=== PATIENT | male | born 1945 | race Caucasian/White ===

== ENCOUNTER → 2016-03-23 | Outpatient (CLI) | payer MEDICARE ==
[2016-03-23 10:26] LABS: ALT 41 U/L (21-72); AST 25 U/L (17-59); Alkaline Phosphatase 71 U/L (38-126); Anion Gap 9 mmol/L; Blood Urea Nitrogen 16 mg/dL (9-20); Calcium 9.3 mg/dL (8.4-10.2); Carbon Dioxide 28 mmol/L (22-30); Chloride 106 mmol/L (98-107); Cholesterol 133 mg/dL (<200); Glucose 108 mg/dL (74-99); HDL Cholesterol 50 mg/dL (40-60); Non-African American GFR(MDRD) >60 (>60 ml/min/1.73 sqM); Potassium 4.7 mmol/L (3.5-5.1); Sodium 143 mmol/L (137-145); Total Bilirubin 0.7 mg/dL (0.2-1.3); Total Protein 7.2 g/dL (6.3-8.2); Triglycerides 50 mg/dL (<150)
[2016-03-23 10:56] LABS: Hemoglobin A1C 6.1 % (4.2-6.1)
== END | disposition home or self-care (01) ==
LOC: LABWHC1 09:29
PROVIDERS: ATTEND Internal Medicine Interventional Cardiology
DX: E78.5 Hyperlipidemia, unspecified (principal); E11.9 Type 2 diabetes mellitus without complications
CPT/HCPCS: 36415; 80053; 80061; 83036

== ENCOUNTER 2018-07-10 20:27 | Inpatient (IN) | payer MEDICARE ==
[2018-07-10] MEDS ORDERED: AMPICILLIN-SULBACTAM 3 GM in SODIUM CHLORIDE 0.9% 100 ML IVPB STA (21:06)
--- NOTE | 2018-07-10 21:08 | ED ---
General Adult HPI - General Chief complaint: Skin/Abscess/Foreign Body Stated complaint: Cat Bite Time Seen by Provider: 07/10/18 20:34 Source: patient, family, RN notes reviewed Mode of arrival: ambulatory Limitations: no limitations - History of Present Illness Initial comments: 73-year-old male presents to the emergency department for a chief complaint of Bite of the right hand. Patient states this happened about 12 hours ago. States it was his daughter's cat and the cat is up-to-date on immunizations including rabies. Patient denies any difficulty moving his hand or thumb but does state it feels tight in the dorsal aspect of the right first metacarpal. Denies fevers or chills. However patient states that a few hours ago he noticed the area was very red and he had a streak up his arm to his elbow. He states he went to urgent care who recommended he come to the emergency department for IV antibiotics.Patient has no other complaints at this time including shortness of breath, chest pain, abdominal pain, nausea or vomiting, headache, or visual changes. - Related Data Home Medications Medication Instructions Recorded Confirmed Aspirin [[place] Aspirin EC] 81 mg PO DAILY 07/10/18 07/10/18 Cholecalciferol (Vitamin D3) 2,000 unit PO DAILY 07/10/18 07/10/18 [Vitamin D3] Multivit-Min/Folic/Vit K/Lycop 1 tab PO DAILY 07/10/18 07/10/18 [Men's Multivitamin Tablet] [place]-3 Fatty Acids/Fish Oil [Fish 1 cap PO DAILY 07/10/18 07/10/18 Oil 1,000 mg Softgel] Vitamin E 1,000 unit PO DAILY 07/10/18 07/10/18 Allergies Allergy/AdvReac Type Severity Reaction Status Date / Time alcohol Allergy Nausea & Verified 07/10/18 20:40 Vomiting egg yolk Allergy Nausea & Verified 07/10/18 20:40 Vomiting gluten Allergy Nausea & Verified 07/10/18 20:40 Vomiting mold Allergy Nausea & Verified 07/10/18 20:40 Vomiting Review of Systems ROS Statement: Those systems with pertinent positive or pertinent negative responses have been documented in the HPI. ROS Other: All systems not noted in ROS Statement are negative. Past Medical History Past Medical History: No Reported History History of Any Multi-Drug Resistant Organisms: None Reported Past Surgical History: No Surgical Hx Reported Past Psychological History: No Psychological Hx Reported Smoking Status: Never smoker Past Alcohol Use History: Occasional Past Drug Use History: None Reported General Exam Limitations: no limitations General appearance: alert, in no apparent distress Head exam: Present: atraumatic, normocephalic, normal inspection Eye exam: Present: normal appearance, PERRL, EOMI. Absent: scleral icterus, conjunctival injection, periorbital swelling ENT exam: Present: normal exam, mucous membranes moist Neck exam: Present: normal inspection, full ROM. Absent: tenderness, meningismus, lymphadenopathy Respiratory exam: Present: normal lung sounds bilaterally. Absent: respiratory distress, wheezes, rales, rhonchi, stridor Cardiovascular Exam: Present: regular rate, normal rhythm, normal heart sounds. Absent: systolic murmur, diastolic murmur, rubs, gallop, clicks Extremities exam: Present: full ROM (Full range of motion of all digits in the right hand including the first digit), normal capillary refill (Capillary refill less than 2 seconds, radial pulse 2+ in the right upper extremity), other (Sensation intact in the right upper extremity. There is an area of cellulitis noted to the dorsal right first metacarpal. There is streaking lymphangitis up to the right elbow on the medial aspect of the forearm.) Course Vital Signs 07/10/18 20:27 Temperature 98.6 F Pulse Rate 67 Respiratory 18 Rate Blood Pressure 186/112 O2 Sat by Pulse 97 Oximetry Medical Decision Making - Medical Decision Making 73-year-old male presents to the emergency determine for a chief complaint of right hand redness after A. Patient states he has streaking up his right arm as well. It occurred about 12 hours ago. Was immunized for rabies. On exam patient has full range motion of the right arm but does have some erythema noted over the right dorsal first metacarpal with lymphangitis extending up to the right elbow. Patient was started on IV Unasyn. CBC CMP are unremarkable. Plasma lactic acid 0.9. Patient is not tachycardic. Patient hypertensive, likely due to pain. X-ray of the right hand shows osteoarthritis without f racture. No definite sign of osteomyelitis. No foreign bodies. Given the lymphangitic streaking with history of cat Bite patient will be admitted for IV antibiotics and further management. - Lab Data Result diagrams: 07/10/18 21:09 07/10/18 21:09 Lab Results 07/10/18 07/10/18 07/10/18 Range/Units 21:09 21:09 21:09 WBC 6.5 (3.8-10.6) k/uL RBC 5.18 (4.30-5.90) m/uL Hgb 14.4 (13.0-17.5) gm/dL Hct 44.9 (39.0-53.0) % MCV 86.6 (80.0-100.0) fL MCH 27.8 (25.0-35.0) pg MCHC 32.2 (31.0-37.0) g/dL RDW 13.5 (11.5-15.5) % Plt Count 250 (150-450) k/uL Neutrophils % 67 % Lymphocytes % 24 % Monocytes % 5 % Eosinophils % 3 % Basophils % 1 % Neutrophils # 4.3 (1.3-7.7) k/uL Lymphocytes # 1.5 (1.0-4.8) k/uL Monocytes # 0.3 (0-1.0) k/uL Eosinophils # 0.2 (0-0.7) k/uL Basophils # 0.1 (0-0.2) k/uL PT (9.0-12.0) sec INR (<1.2) APTT (22.0-30.0) sec Sodium 139 (137-145) mmol/L Potassium 4.1 (3.5-5.1) mmol/L Chloride 106 (98-107) mmol/L Carbon Dioxide 27 (22-30) mmol/L Anion Gap 6 mmol/L BUN 23 H (9-20) mg/dL Creatinine 0.91 (0.66-1.25) mg/dL Est GFR (CKD-EPI)AfAm >90 (>60 ml/min/1.73 sqM) Est GFR (CKD-EPI)NonAf 85 (>60 ml/min/1.73 sqM) Glucose 100 H (74-99) mg/dL Plasma Lactic Acid [place] 0.9 (0.7-2.0) mmol/L Calcium 9.6 (8.4-10.2) mg/dL Total Bilirubin 0.3 (0.2-1.3) mg/dL AST 30 (17-59) U/L ALT 27 (21-72) U/L Alkaline Phosphatase 77 (38-126) U/L Total Protein 7.1 (6.3-8.2) g/dL Albumin 4.4 (3.5-5.0) g/dL 07/10/18 Range/Units 21:09 WBC (3.8-10.6) k/uL RBC (4.30-5.90) m/uL Hgb (13.0-17.5) gm/dL Hct (39.0-53.0) % MCV (80.0-100.0) fL MCH (25.0-35.0) pg MCHC (31.0-37.0) g/dL RDW (11.5-15.5) % Plt Count (150-450) k/uL Neutrophils % % Lymphocytes % % Monocytes % % Eosinophils % % Basophils % % Neutrophils # (1.3-7.7) k/uL Lymphocytes # (1.0-4.8) k/uL Monocytes # (0-1.0) k/uL Eosinophils # (0-0.7) k/uL Basophils # (0-0.2) k/uL PT 9.6 (9.0-12.0) sec INR 0.9 (<1.2) APTT 25.5 (22.0-30.0) sec Sodium (137-145) mmol/L Potassium (3.5-5.1) mmol/L Chloride (98-107) mmol/L Carbon Dioxide (22-30) mmol/L Anion Gap mmol/L BUN (9-20) mg/dL Creatinine (0.66-1.25) mg/dL Est GFR (CKD-EPI)AfAm (>60 ml/min/1.73 sqM) Est GFR (CKD-EPI)NonAf (>60 ml/min/1.73 sqM) Glucose (74-99) mg/dL Plasma Lactic Acid [place] (0.7-2.0) mmol/L Calcium (8.4-10.2) mg/dL Total Bilirubin (0.2-1.3) mg/dL AST (17-59) U/L ALT (21-72) U/L Alkaline Phosphatase (38-126) U/L Total Protein (6.3-8.2) g/dL Albumin (3.5-5.0) g/dL Disposition Clinical Impression: Cat bite, Lymphangitis Disposition: ADMITTED IP TO THIS HOSP Condition: Fair Is patient prescribed a controlled substance at d/c from ED?: No Referrals: None,Stated [Primary Care Provider] - 1-2 days Time of Disposition: 21:08
[2018-07-10 21:25] LABS: Basophils # (A) 0.1 k/uL (0-0.2); Basophils % (A) 1 %; Eosinophils # (A) 0.2 k/uL (0-0.7); Eosinophils % (A) 3 %; HCT 44.9 % (39.0-53.0); HGB 14.4 gm/dL (13.0-17.5); Lymphocytes # (A) 1.5 k/uL (1.0-4.8); Lymphocytes % (A) 24 %; MCH 27.8 pg (25.0-35.0); MCHC 32.2 g/dL (31.0-37.0); MCV 86.6 fL (80.0-100.0); Mean Platelet Volume 6.5; Monocytes # (A) 0.3 k/uL (0-1.0); Monocytes % (A) 5 %; Neutrophils # (A) 4.3 k/uL (1.3-7.7); Neutrophils % (A) 67 %; Platelet Count 250 k/uL (150-450); RBC 5.18 m/uL (4.30-5.90); RDW 13.5 % (11.5-15.5); WBC 6.5 k/uL (3.8-10.6)
[2018-07-10 21:31] LABS: ALT 27 U/L (21-72); AST 30 U/L (17-59); Albumin 4.4 g/dL (3.5-5.0); Alkaline Phosphatase 77 U/L (38-126); Anion Gap 6 mmol/L; Blood Urea Nitrogen 23 mg/dL (9-20); Calcium 9.6 mg/dL (8.4-10.2); Carbon Dioxide 27 mmol/L (22-30); Chloride 106 mmol/L (98-107); Glucose 100 mg/dL (74-99); Potassium 4.1 mmol/L (3.5-5.1); Sodium 139 mmol/L (137-145); Total Bilirubin 0.3 mg/dL (0.2-1.3); Total Protein 7.1 g/dL (6.3-8.2)
[2018-07-10 21:32] LABS: INR 0.9 (<1.2); Partial Thromboplastin Time 25.5 sec (22.0-30.0); Prothrombin Time 9.6 sec (9.0-12.0)
--- NOTE | 2018-07-10 21:45 | XR ---
EXAMINATION TYPE: XR hand complete RT DATE OF EXAM: 07/10/2018 COMPARISON: NONE HISTORY: Pain TECHNIQUE: 2 views FINDINGS: Metacarpal 2 intact. There is narrowing and spurring at the first carpometacarpal joint. I see no fracture nor dislocation. There are cystic change at the base of the first metacarpal. There i s mild spurring at the DIP joints. There is narrowing with sclerosis at the scaphoid trapezium joint. IMPRESSION: Osteoarthritis. No fracture. No definite sign of osteomyelitis.
[2018-07-10] MEDS ORDERED: NALOXONE 0.4 MG/ML 1 ML VIAL IV PRN (21:56)
[2018-07-10] MEDS ORDERED: ONDANSETRON 4 MG/2 ML VIAL IVP PRN (21:56)
[2018-07-10] MEDS ORDERED: traMADol 50 MG TAB PO PRN (21:56)
[2018-07-10] MEDS ORDERED: ACETAMINOPHEN TAB 325 MG TAB PO PRN (21:56)
[2018-07-10] MEDS ORDERED: SODIUM CHLORIDE 0.9% 1,000 ML IV SCH (22:00)
[2018-07-10] MEDS: SODIUM CHLORIDE 0.9% 500 ML 500 ML IV SCH ×2 (22:03→23:37)
[2018-07-10] MEDS ORDERED: cloNIDine HCL 0.2 MG TAB PO PRN (22:39)
--- NOTE | 2018-07-10 23:32 | P.HPIM ---
History of Present Illness H&P Date: 07/10/18 Chief Complaint: Cat-bite 73-year-old male with no significant past medical history Patient presented to the hospital after sustaining a cat Bite, but his daughter's pet who is up-to-date on all the vaccines. Patient felt that the bite was deep to the bone. He monitored bed for few hours and grew worried when he noticed increased redness pain and then streak of red line from the site of bite to the elbow for which she went to urgent care who recommended to go to the ER. He denies any fevers or chills denies any chest pain or trouble breathing denies any similar events in the past. Patient doesn't have any ALLERGIES to penicillin. In the ED he was started on Unasyn, patient has no fever no elevated white count Past Medical History Past Medical History: No Reported History History of Any Multi-Drug Resistant Organisms: None Reported Past Surgical History: No Surgical Hx Reported Past Psychological History: No Psychological Hx Reported Smoking Status: Never smoker Past Alcohol Use History: Occasional Past Drug Use History: None Reported Medications and Allergies Home Medications Medication Instructions Recorded Confirmed Type Aspirin [[place] Aspirin EC] 81 mg PO DAILY 07/10/18 07/10/18 History Cholecalciferol (Vitamin D3) 2,000 unit PO DAILY 07/10/18 07/10/18 History [Vitamin D3] Multivit-Min/Folic/Vit K/Lycop 1 tab PO DAILY 07/10/18 07/10/18 History [Men's Multivitamin Tablet] [place]-3 Fatty Acids/Fish Oil [Fish 1 cap PO DAILY 07/10/18 07/10/18 History Oil 1,000 mg Softgel] Vitamin E 1,000 unit PO DAILY 07/10/18 07/10/18 History Allergies Allergy/AdvReac Type Severity Reaction Status Date / Time alcohol Allergy Nausea & Verified 07/10/18 20:40 Vomiting egg yolk Allergy Nausea & Verified 07/10/18 20:40 Vomiting gluten Allergy Nausea & Verified 07/10/18 20:40 Vomiting mold Allergy Nausea & Verified 07/10/18 20:40 Vomiting Physical Exam Vitals: Vital Signs Temp Pulse Resp BP Pulse Ox 07/10/18 20:27 98.6 F 67 18 186/112 97 Intake and Output 07/10/18 07/10/18 07/10/18 06:59 14:59 22:59 Other: Weight 79.379 kg Results CBC & Chem 7: 07/10/18 21:09 07/10/18 21:09 Labs: Abnormal Lab Results - Last 24 Hours (Table) 07/10/18 Range/Units 21:09 BUN 23 H (9-20) mg/dL Glucose 100 H (74-99) mg/dL Assessment and Plan Assessment: 73-year-old male with no significant past medical history presented to the hospital due to cat-bite admitted under observation with anticipated length of stay less than 48 hours patient will be monitored for 24 hours and if no fevers and erythema is improving patient will be discharged on Augmentin to finish ten-day course Plan: Cellulitis at site of cat bite Hypertensive urgency Patient was started on Unasyn Follow-up cultures Clonidine when necessary for systolic above 180 or diastolic above 110 DVT prophylaxis patient is ambulatory low risk Patient has matters to 10 in the morning and he would like to be evaluated early in the morning to see if he is appropriate for discharge Surrogate decision-maker: Patient CODE STATUS: Full code Discussed with: Patient, ER, RN Anticipated discharge: Less than [address]: Home A total of 60 minutes was spent on the care of this complex patient more than 50% of the time was spent in counseling and care coordination.
[2018-07-11] MEDS ORDERED: AMPICILLIN-SULBACTAM 3 GM in SODIUM CHLORIDE 0.9% 100 ML IVPB SCH (04:00)
[2018-07-11 05:40] VITALS: BP 96/50; PULSE 55; RESP 16; TEMP 97.6
--- NOTE | 2018-07-11 08:19 | P.DS ---
Providers Date of admission: 07/10/18 20:56 Expected date of discharge: 07/11/18 Attending physician: Ryan Lance MD Primary care physician: Stated None Hospital Course: Discharge Diagnosis: Cat bite Left hand cellulitis Elevated blood pressure without diagnosis of HTN Hospital Course: Patient is a 73-year-old male with no known past medical history who presented to the hospital after sustaining a cat bite. He initially went to the [facility] and [facility] and they were concerned about the area of redness may therefore sent to the hospital. In the ER he underwent an extensive evaluation. He did not have any fevers, white blood cell count was normal. He was admitted for observation secondary to concern for impending sepsis. He was started on Un asyn. He was admitted overnight. Area of redness decreased up his arm. He was able to better move his hand and swelling decreased. He was determined stable for outpatient course of oral antibiotics. Secondary to sepsis around the bite he should receive a total of 10 days of antibiotics. He will complete this course with Augmentin 875 mg twice daily for 9 additional days. He can use Tylenol and Motrin [id number] as needed for pain. He was given explicit instructions as listed below 1 to return to the ER. I've asked him to follow up with a provider in 3 days to ensure that the cellulitis is getting better. He'll follow with Dr. Moore out of the [facility] and [facility]. Patient seen and examined at bedside. Pain improved, swelling improved. Feeling well. Vital signs reviewed and stable. General: non toxic, no distress, appears at stated age Derm: left thumb with redness, no warmth, no swelling, full range of motion intact, warm, dry Head: atraumatic, normocephalic, symmetric Eyes: EOMI, no lid lag, anicteric sclera Mouth: no lip lesion, mucus membranes moist Cardiovascular: S1S2 reg, no murmur, positive posterior tibial pulse bilateral, Lungs: CTA bilateral, no rhonchi, no rales , no accessory muscle use Abdominal: soft, nontender to palpation, no guarding, no appreciable organomegaly Ext: no gross muscle atrophy, no edema, no contractures Neuro: CN II-XI grossly intact, no focal neuro deficits Psych: Alert, oriented, appropriate affect A total of 20 minutes of time were spent preparing this complex discharge summary . Patient Condition at Discharge: Fair Plan - Discharge Summary Discharge Rx Participant: No New Discharge Prescriptions: New Amoxic-Pot Clav 875-125Mg [Augmentin 875-125] 1 tab PO Q12HR #18 tablet Continue Vitamin E 1,000 unit PO DAILY [place]-3 Fatty Acids/Fish Oil [Fish Oil 1,000 mg Softgel] 1 cap PO DAILY Multivit-Min/Folic/Vit K/Lycop [Men's Multivitamin Tablet] 1 tab PO DAILY Cholecalciferol (Vitamin D3) [Vitamin D3] 2,000 unit PO DAILY Aspirin [[place] Aspirin EC] 81 mg PO DAILY Discharge Medication List Aspirin [[place] Aspirin EC] 81 mg PO DAILY 07/10/18 [History] Cholecalciferol (Vitamin D3) [Vitamin D3] 2,000 unit PO DAILY 07/10/18 [History] Multivit-Min/Folic/Vit K/Lycop [Men's Multivitamin Tablet] 1 tab PO DAILY 07/10/18 [History] [place]-3 Fatty Acids/Fish Oil [Fish Oil 1,000 mg Softgel] 1 cap PO DAILY 07/10/18 [History] Vitamin E 1,000 unit PO DAILY 07/10/18 [History] Amoxic-Pot Clav 875-125Mg [Augmentin 875-125] 1 tab PO Q12HR #18 tablet 07/11/18 [Rx] Follow up Appointment(s)/Referral(s): Atilio Moore MD [REFERRING] - 3 Days None,Stated [Primary Care Provider] - 1-2 days Activity/Diet/Wound Care/Special Instructions: regular diet activity as tolerated Return to emergency if fever greater than 101, increased fatigue, worsening redness or pain, inability to move fingers/hand May use over the counter tylenol or motrin for pain
[2018-07-11] MEDS ORDERED: ASPIRIN 81 MG PO SCH (09:00)
== END 2018-07-11 08:40 | disposition home or self-care (01) | DRG 603 ==
LOC: EC 20:27 → 3NMEDONC 20:56
PROVIDERS: ADMIT Internal Medicine; ATTEND Internal Medicine
DX: L03.114 Cellulitis of left upper limb (principal); R03.0 Elevated blood-pressure reading, without diagnosis of hypertension; Z91.012 Allergy to eggs; Z91.09 Other allergy status, other than to drugs and biological substances; W55.01XA Bitten by cat, initial encounter
CPT/HCPCS: 36415; 80053; 83605; 85025; 85610; 85730; 87040; 96365; 99284

== ENCOUNTER → 2018-08-11 | Outpatient (CLI) | payer MEDICARE ==
[2018-08-11 16:53] LABS: African American GFR (CKD) 87.4 (60.0-200.0); Albumin 4.2 g/dL (3.80-4.90); Albumin/Globulin Ratio 1.75 (1.60-3.17); Anion Gap 7.2 mmol/L (4.00-12.00); Calcium 9.4 mg/dL (8.7-10.3); Carbon Dioxide 28.8 mmol/L (21.6-31.8); Globulin 2.4 g/dL (1.6-3.3); LDL Cholesterol,Calculated 113.8 mg/dL (0.0-131.0); Potassium 4.2 mmol/L (3.5-5.5); Total Bilirubin 0.5 mg/dL (0.3-1.2); Total Protein 6.6 g/dL (6.2-8.2); VLDL Calculation 32.2 mg/dL (5.00-40.00)
[2018-08-11 20:59] LABS: Hemoglobin A1C 6.2 % (4.0-6.0)
== END | disposition home or self-care (01) ==
LOC: LABWHC1 09:50
PROVIDERS: ATTEND Internal Medicine Clinical Cardiac Electrophysiology
DX: E78.5 Hyperlipidemia, unspecified (principal); I42.9 Cardiomyopathy, unspecified; R73.03 Prediabetes
CPT/HCPCS: 36415; 80053; 80061; 83036; 84443

== ENCOUNTER → 2019-05-04 | Outpatient (CLI) | payer MEDICARE ==
[2019-05-04 17:50] LABS: African American GFR (CKD) 77.3 (60.0-200.0); Anion Gap 10.2 mmol/L (4.00-12.00); BUN/Creat Ratio 16.36 Ratio (12.00-20.00); Calcium 9.3 mg/dL (8.7-10.3); Carbon Dioxide 26.8 mmol/L (21.6-31.8); Chol/HDL Ratio 2.9; LDL Cholesterol,Calculated 69.8 mg/dL (0.0-131.0); Non-African American GFR(CKD) 66.7 (60.0-200.0); Potassium 4.7 mmol/L (3.5-5.5); VLDL Calculation 25.2 mg/dL (5.00-40.00)
[2019-05-04 17:53] LABS: Hemoglobin A1C 6.2 % (4.0-6.0)
== END | disposition home or self-care (01) ==
LOC: LABWHC1 10:18
PROVIDERS: ATTEND Physician Assistant
DX: E78.5 Hyperlipidemia, unspecified (principal); R73.03 Prediabetes; R03.0 Elevated blood-pressure reading, without diagnosis of hypertension
CPT/HCPCS: 36415; 80048; 80061; 83036

== ENCOUNTER → 2021-04-02 | Outpatient (CLI) | payer MEDICARE ==
--- NOTE | 2021-04-02 15:34 | CONS ---
CONSULTATION DATE OF SERVICE: 04/02/2021 This 76-year-old gentleman has been evaluated in Sleep Center for obstructive sleep apnea-hypopnea syndrome. HISTORY OF PRESENT ILLNESS/SLEEP-WAKE EVALUATION: This patient was diagnosed with obstructive sleep apnea 20 years ago in [facility] in [place], [place]. He was started on treatment with CPAP but used the machine less than one year and stopped using it. At the present time, his sleep schedule is from 10 p.m. to between 4:30 and 5:30 a.m. No problems with falling asleep. No TV in bedroom. He usually sleeps on the back and side positions. He wakes up from sleep 3 times with 2 episodes of nocturia. He snores and has witnessed episodes of stopped breathing during sleep. In the morning the patient wakes up tired, has episodes of headaches, takes a nap around 1:30 p.m. [place] Sleepiness Scale is 10. PAST MEDICAL HISTORY: Positive for hypertension, hyperlipidemia, arthritis. PAST SURGICAL HISTORY: Hernia repair, cataract surgery. MEDICATIONS: 1. Atorvastatin 20 mg once a day. 2. Aspirin 81 mg once a day. 3. Medication for blood pressure; possibly amlodipine. The patient does not remember the exact name. SOCIAL HISTORY: Negative for smoking. Alcohol consumption occasional. FAMILY HISTORY: Cancer, sleep apnea, hypertension. PHYSICAL EXAMINATION: GENERAL APPEARANCE: Pleasant gentleman without distress. VITAL SIGNS: BP 155/87, HR 66, RR 16, height 6 feet 0 inches, weight 179.0, body mass index 24.2, temperature 97.1, oxygen saturation at room air 95%. HEENT: PERRLA, EOMI, evaluation of oropharynx showed tongue protrudes midline. Moderately low position of soft palate; Mallampati III. Long, thin uvula. NECK: Supple, no JVD. Thyroid is not palpable. LUNGS: Clear to percussion and to auscultation. Good air exchange. No wheezing or rhonchi. HEART: S1, S2 regular. No murmurs, gallops, or rubs. ABDOMEN: Soft and nontender. Bowel sounds are present. No organomegaly appreciated. EXTREMITIES: No clubbing or cyanosis. OIL PROCESSING TECHNICIAN: Awake, alert, and oriented X3. Cranial nerves 2 to 7 intact. There is no fasciculation or atrophy. noted. No focal deficits observed. IMPRESSION: 1. Snoring, witnessed episodes of stopped breathing during sleep, low position of soft palate, sleepiness during the day, Flasher Sleepiness Scale increased to 10; obstructive sleep apnea-hypopnea syndrome. 2. Hypertension. 3. Hyperlipidemia. 4. Status post hernia repair. 5. Status post cataract surgery. 6. Headaches. 7. History of arthritis. PLAN: 1. Polysomnography for evaluation of patient's breathing during sleep. 2. CPAP/BiPAP titration if sleep study confirms obstructive sleep apnea-hypopnea syndrome. 3. Preferable position during sleep on the side. 4. No driving if patient feels any sleepiness. 5. I will see patient for follow up visit to explain results of testing and following plan. Sincerely, Shemar Rendon MD, PhD, FAASM Diplomat of [place] [employer] Sleep Medicine Board of [place] [employer] Mortgage [employer] Loan Underwriter of [facility] [place] MMODL / XUN: [id number] /
== END | disposition home or self-care (01) ==
LOC: SLEEP 13:20
PROVIDERS: ATTEND Internal Medicine
DX: G47.33 Obstructive sleep apnea (adult) (pediatric) (principal)
CPT/HCPCS: 99211

== ENCOUNTER → 2021-07-15 | Outpatient (CLI) | payer MEDICARE ==
--- NOTE | 2021-07-15 13:21 | SFUN ---
SLEEP CENTER FOLLOW UP NOTE DATE OF SERVICE: 07/15/2021 This 76-year-old gentleman has been followed in Sleep Center for treatment of obstructive sleep apnea-hypopnea syndrome. Recently the patient had a polysomnogram which showed that he has obstructive sleep apnea-hypopnea syndrome with apnea-hypopnea index 24.6. I discussed the results of his sleep study with the patient in detail. Then he had a CPAP titration and subsequently received his CPAP unit. Today is his first visit since receiving his CPAP unit. The patient noted that he feels better while he is using CPAP; he sleeps better and he feels better during the day. I checked his CPAP unit. For the last month, usage is 90% of the nights, with 57% of nights for more than 4 hours, many nights very close to 4 hours' time. Pressure in the machine is 14/10 cm of water BiPAP, apnea-hypopnea index 3.3, which is normal. Leak is high at 54.7. The patient is a using nasal pillow mask and chinstrap. MEDICATIONS: 1. Atorvastatin 20 mg once a day. 2. Aspirin 81 mg once a day. 3. Medication for blood pressure. PHYSICAL EXAMINATION: GENERAL: Pleasant patient in no distress. VITAL SIGNS: BP 160/88, HR 75, RR 18, weight 183.2, temperature 96.6, oxygen saturation at room air 95%. HEENT: PERRLA, EOMI, evaluation of oropharynx showed tongue protrudes midline. Low position of soft palate; Mallampati III. NECK: Supple, no JVD. Thyroid is not palpable. LUNGS: Clear to percussion and to auscultation. Good air exchange. No wheezing or rhonchi. HEART: S1, S2 regular. No murmurs, gallops, or rubs. ABDOMEN: Soft and nontender. Bowel sounds are present. No organomegaly appreciated. EXTREMITIES: No clubbing or cyanosis. JEWEL DIAMETER GAUGER: Awake, alert, and oriented X3. Cranial nerves 2 to 7 intact. There is no fasciculation or atrophy. noted. No focal deficits observed. IMPRESSION: 1. Moderate obstructive sleep apnea-hypopnea syndrome; apnea-hypopnea index 24.6. The patient demonstrated borderline compliance with BiPAP treatment, benefitting from treatment. Normal respiration on BiPAP. Leak is slightly high. 2. Hypertension. 3. Hyperlipidemia. 4. History of episodes of headaches. 5. Periodic limb movements were documented during diagnostic night and during titration in severe range. 6. Status post hernia repair. 7. Status post cataract surgery. 8. Headaches. 9. History of arthritis. PLAN: 1. I discussed with the patient in detail the position of the machine. At present it is on the same level as his head lower. Discussed precautions related to humidification and adjustments of humidity, position of the hose. 2. Patient may use AYR gel to the nose with nasal pillows. 3. Patient will continue to use PAP equipment every night for the whole night. 4. Sleep hygiene with regular time in bed for at least 7-1/2 to 8 hours. 5. Precautions related to driving. No driving if feeling sleepiness. 6. I will maintain all necessary prescription for PAP supplies including mask, tube, filters. 7. Watching weight. 8. Follow-up visit in 6 months or earlier if patient has any problems. Thank you very much for allowing me to participate in the management of your patient. Sincerely, Shemar Rendon MD, PhD, FAASM Diplomat of [place] [employer] Sleep Medicine Board of [place] [employer] Printing Pressman of [facility] [place] MMODL / XUN: [id number] /
== END ==
LOC: SLEEP 10:28
PROVIDERS: ATTEND Internal Medicine
DX: G47.33 Obstructive sleep apnea (adult) (pediatric) (principal); Z99.89 Dependence on other enabling machines and devices; I10 Essential (primary) hypertension; E78.5 Hyperlipidemia, unspecified; G47.61 Periodic limb movement disorder; Z98.890 Other specified postprocedural states; Z98.49 Cataract extraction status, unspecified eye; M19.90 Unspecified osteoarthritis, unspecified site; Z91.012 Allergy to eggs; Z91.018 Allergy to other foods; Z91.09 Other allergy status, other than to drugs and biological substances

== ENCOUNTER → 2021-12-30 | Outpatient (CLI) | payer MEDICARE ==
--- NOTE | 2021-12-30 16:19 | P.PN ---
Subjective DATE: 12/30/2021 FOLLOW UP VISIT. Patient with obstructive sleep apnea hypopnea syndrome return to sleep center for follow-up visit. Information from previous visit have been reviewed. Patient is using PAP equipment every night for the whole night, getting BPAP supplies in time. The patient does not have significant problems with the mask, BPAP unit and humidification. [place] sleepiness scale is 9. I checked BPAP unit. BPAP unit pressure 14/10 cm H2O. Usage is 95 % of the nights for the last months but not always more than 4 h ours, average 3.8 hours per night. Leak is increased to 46 l/m. Apnea Hypopnea Index is 3.5, which is normal. MEDICATIONS:1. Atorvastatin 20 mg once a day 2.. Prednisone 3. Methotrexate During physical exam: GENERAL: A pleasant patient without any distress. VITAL SIGNS: BP 152/82, HR 80, RR 16, weight 182.6, temperature 97.4, oxygen saturation at room air 96 % . HEENT: PERRLA, EOMI.low position of soft palate, Mallapati 3 . NECK: Supple. No JVD. LUNGS: Clear to percussion and to auscultation. Good air exchange. No wheezing or rhonchi. HEART: S1, S2 regular. ABDOMEN: Soft and nontender.[] EXTREMITIES: No clubbing or cyanosis. CARE TRANSITIONS MANAGER: Awake, alert, and oriented x3. No focal deficit. Impressions: 1. Obstructive sleep apnea-hypopnea syndrome. Patient demonstrated borderline compliance with treatment, benefiting from treatment. 2. History of hypertension. 3. Arthritis. 4. Hyperlipidemia. 5. History of episodes of headaches. 6. Periodic limb movements. 7. Status post hernia repair. 8. Status post cataract surgery. Plan: 1. Continue using PAP equipment every night for the whole night. 2. To change air filter at least 1-2 times per month. 3. PAP unit should stay lower then position of the head. 4. Advised patient to remove all remaining water from humidifier canister daily and make it dry after each usage. Refill canister with fresh distilled water before each usage. 5. Sleep hygiene with regular time in bed for at least 8 hours. 6. Precautions related to driving. No driving if feel any sleepiness. 7. I will maintain prescription for PAP supplies including mask, tube, filters. 8. Follow up visit in 6 months or earlier if patient has any problems. 9. Watching weight. Thank you very much for allowing me to participate in the management of your patient. Shemar Rendon MD, PhD, FAASM. Diplomat of [place] [employer], Sleep Medicine Board by [place] [employer] Attorney of [facility] [place]
== END ==
LOC: SLEEP 13:33
PROVIDERS: ATTEND Internal Medicine
DX: G47.33 Obstructive sleep apnea (adult) (pediatric) (principal); Z99.89 Dependence on other enabling machines and devices; E78.5 Hyperlipidemia, unspecified; I10 Essential (primary) hypertension; M13.80 Other specified arthritis, unspecified site; G47.61 Periodic limb movement disorder; Z86.69 Personal history of other diseases of the nervous system and sense organs; Z98.890 Other specified postprocedural states; Z91.048 Other nonmedicinal substance allergy status; Z91.012 Allergy to eggs; Z91.018 Allergy to other foods
CPT/HCPCS: 99212

== ENCOUNTER 2022-05-20 07:48 | Day surgery (SDC) | payer MEDICARE ==
[~2022-05-20 07:48] MED LIST: SODIUM CHLORIDE 0.9% 1,000 ML IV SCH
[2022-05-20 08:14] VITALS: BP 174/92; PULSE 64; RESP 18; TEMP 98.6
[2022-05-20] MEDS ORDERED: LIDOCAINE 1% INJ 10MG/ML (20 ML MDV) SQ ONE (10:14)
--- NOTE | 2022-05-20 10:40 | P.EPPROC ---
- EP Procedure Note Electrophysiology Procedure Note: Loop monitor implant Primary physicians: Field Training Manager: Dr. Alicia Indication: Syncope while driving Patient was brought to the EP lab in a fasting state. Written informed consent was obtained prior to the procedure. The left pectoral area was prepped and draped per protocol. Intravenous antibiotic was administered preoperatively. A subcutaneous Loop monitor was implanted successfully and the wound was closed per protocol. The device was programmed to detect significant luis eduardo- arrhythmic and tachy-arrhythmic events, per protocol. Device and programming details: Syncope protocol Patient underwent EP procedure under conscious sedation/moderate sedation, monitoring of the level of consciousness and physiologic parameters including but not limited to vital signs and oxygenation. Patient tolerated the procedure well without any acute complications. Start time: 1013 Stop time: 1027
== END 2022-05-20 11:00 | disposition home or self-care (01) ==
LOC: CATHEP 07:48
PROVIDERS: ATTEND Internal Medicine Clinical Cardiac Electrophysiology
DX: R55 Syncope and collapse (principal); I42.8 Other cardiomyopathies; G47.33 Obstructive sleep apnea (adult) (pediatric); E78.5 Hyperlipidemia, unspecified; M35.3 Polymyalgia rheumatica; Z79.899 Other long term (current) drug therapy; Z79.52 Long term (current) use of systemic steroids
CPT/HCPCS: 33285; 99152; C1764; J0690; J2001

== ENCOUNTER → 2022-07-22 | Outpatient (CLI) | payer MEDICARE ==
--- NOTE | 2022-07-22 13:48 | P.PN ---
Subjective DATE: 07/22/2022 FOLLOW UP VISIT. Patient with obstructive sleep apnea hypopnea syndrome return to sleep center for follow-up visit. Information from previous visit have been reviewed. Patient is using PAP equipment every night for the whole night, getting PAP supplies in time. The patient does not have significant problems with the mask, PAP unit and humidification. [place] sleepiness scale is 7, which is normal. I checked information from BPAP unit. BPAP unit pressure 14/10 cm H2O. Usage is 98 % for more then 4 hours, average 4.6 hours per night. Leak is increased to 41 l/m. Apnea Hypopnea Index is 5.1, which is borderline. MEDICATIONS:1. Amlodipine 2. Claritin 3. Aspirin During physical exam: GENERAL: A pleasant patient without any distress. VITAL SIGNS: BP 157/86, HR 62, RR 18 , weight 182, temperature 98.0, oxygen saturation at room air 98 % . HEENT: PERRLA, EOMI.low position of soft palate, Mallapati 3 . NECK: Supple. No JVD. LUNGS: Clear to percussion and to auscultation. Good air exchange. No wheezing or rhonchi. HEART: S1, S2 regular. ABDOMEN: Soft and nontender.[] EXTREMITIES: No clubbing or cyanosis. PLANT SPRAYER: Awake, alert, and oriented x3. No focal deficit. Impressions: 1. Obstructive sleep apnea-hypopnea syndrome. Patient demonstrated great compliance with treatment, benefiting from treatment. 2. History of hypertension. 3. History of headaches before using BiPAP. No headaches in BiPAP. 4. History of periodic limb movements, no complaints on any symptoms. 5. Status post cataract surgery. 6. History of arthritis. Plan: 1. Continue using PAP equipment every night for the whole night. 2. To change air filter at least 1-2 times per month. 3. PAP unit should stay lower then position of the head. 4. Advised patient to remove all remaining water from humidifier canister daily and make it dry after each usage. Refill canister with fresh distilled water before each usage. 5. Sleep hygiene with regular time in bed for at least 8 hours. 6. Precautions related to driving. No driving if feel any sleepiness. 7. I will maintain prescription for PAP supplies including mask, tube, filters. 8. Watching weight. 9. Follow up visit in 6 months or earlier if patient has any problems. Thank you very much for allowing me to participate in the management of your patient. Shemar Rendon MD, PhD, FAASM. Diplomat of [place] [employer], Sleep Medicine Board by [place] [employer] Mail Distributor of [facility] [place]
== END ==
LOC: SLEEP 13:06
PROVIDERS: ATTEND Internal Medicine
DX: G47.33 Obstructive sleep apnea (adult) (pediatric) (principal); I10 Essential (primary) hypertension; R51.9 Headache, unspecified; Z99.89 Dependence on other enabling machines and devices; Z98.890 Other specified postprocedural states; M19.90 Unspecified osteoarthritis, unspecified site; Z79.82 Long term (current) use of aspirin; Z91.048 Other nonmedicinal substance allergy status; Z91.011 Allergy to milk products; Z91.018 Allergy to other foods
CPT/HCPCS: 99212

== ENCOUNTER → 2023-07-20 | Outpatient (CLI) | payer MEDICARE ==
--- NOTE | 2023-07-20 11:42 | P.PROGSL ---
Subjective DATE: 07/20/2023 FOLLOW UP VISIT. Patient with obstructive sleep apnea hypopnea syndrome return to sleep center for follow-up visit. Information from previous visit have been reviewed. Patient is using PAP equipment every night for the whole night, getting PAP supplies in time. The patient does not have significant problems with the mask, BPAP unit and humidification. [place] sleepiness scale is 7, which is normal. I checked information from BPAP unit. BPAP unit pressure 14/10 cm H2O. Usage is 90% for more then 4 hours, average 4 hours per night. Leak is significantly increased to 49 l/m. Patient is using nasal pillow mask and possibly opening his mouth. He is using chinstrap, but not every night. Sometimes no states plugged up during the night. Apnea Hypopnea Index is 2.5, which is normal. MEDICATIONS: Please see below During physical exam: GENERAL: A pleasant patient without any distress. VITAL SIGNS: Please see below, weight 179 pounds, BMI 24.2 . HEENT: PERRLA, EOMI.low position of soft palate, Mallapati 3 . NECK: Supple. No JVD. LUNGS: Clear to percussion and to auscultation. Good air exchange. No wheezing or rhonchi. HEART: S1, S2 regular. ABDOMEN: Soft and nontender.[] EXTREMITIES: No clubbing or cyanosis. DIVING FISHER: Awake, alert, and oriented x3. No focal deficit. Impressions: 1. Obstructive sleep apnea-hypopnea syndrome. Patient demonstrated great compliance with treatment, benefiting from treatment. 2. Hypertension. 3. Hyperlipidemia. 4. History of headaches before starting BiPAP. 5. History of periodic limb movements, no complaints at the present time. 6. Status post cataract surgery. 7. History of arthritis. Plan: 1. Continue using PAP equipment every night for the whole night. 2. Patient should use chinstrap every night. 3. Patient will try nasal strips to prevent closing of nose during sleep. 4. Advised patient to remove all remaining water from humidifier canister daily and make it dry after each usage. Refill canister with fresh distilled water before each usage. 5. Sleep hygiene with regular time in bed for at least 8 hours. 6. Precautions related to driving. No driving if feel any sleepiness. 7. I will maintain prescription for PAP supplies including mask, tube, filters. 8. Follow up visit in 6 months or earlier if patient has any problems. 9. Watching weight. Thank you very much for allowing me to participate in the management of your patient. Shemar Rendon MD, PhD, FAASM. Diplomat of [place] [employer], Sleep Medicine Board by [place] [employer] Drawing Checker of [facility] [place] Objective - Vital Signs Vital Signs: Intake & Output 07/19/23 07/20/23 07/20/23 18:59 06:59 18:59 Weight 81.193 kg Home Medications: Home Medications Medication Instructions Recorded Confirmed Type Multivit-Min/Folic/Vit K/Lycop 1 tab PO DAILY 07/10/18 07/20/23 History [Men's Multivitamin Tablet] Vitamin E (Dl,Tocopheryl Acet) 180 mg PO DAILY 07/10/18 07/20/23 History [Vitamin E] Atorvastatin [Lipitor] 20 mg PO HS 05/19/22 07/20/23 History Folic Acid 1 mg PO DAILY 05/19/22 07/20/23 History amLODIPine [Norvasc] 5 mg PO DAILY 05/19/22 07/20/23 History metHOTREXate sodium [Methotrexate] 8 tab PO WEEKLY 05/19/22 07/20/23 History Ubiquinol [Co-Veratrol] 100 mg PO DAILY 07/20/23 07/20/23 History
== END ==
LOC: 3 N SLEEP 10:34
PROVIDERS: ATTEND Internal Medicine
DX: G47.33 Obstructive sleep apnea (adult) (pediatric) (principal); I10 Essential (primary) hypertension; E78.5 Hyperlipidemia, unspecified; Z86.69 Personal history of other diseases of the nervous system and sense organs; Z98.49 Cataract extraction status, unspecified eye; Z87.39 Personal history of other diseases of the musculoskeletal system and connective tissue; Z99.89 Dependence on other enabling machines and devices; Z88.8 Allergy status to other drugs, medicaments and biological substances; Z91.012 Allergy to eggs; Z91.018 Allergy to other foods; Z91.09 Other allergy status, other than to drugs and biological substances; Z79.899 Other long term (current) drug therapy
CPT/HCPCS: 99212